=== PATIENT | male | born 1980 | race African-American/Black ===

== ENCOUNTER 2019-03-26 18:14 | Emergency (ER) | payer MEDICAID ==
[~2019-03-26] VITALS: Ht 167.6 cm; Wt 91.4 kg
[2019-03-26 19:02] VITALS: BP 142/96
== END 2019-03-26 19:51 | disposition home or self-care (01) ==
LOC: ED 19:45
DX: G89.11 Acute pain due to trauma (principal); M79.641 Pain in right hand
CPT/HCPCS: 99283

== ENCOUNTER 2019-11-30 11:18 | Emergency (ER) | payer MEDICAID, OTHER ==
[~2019-11-30] VITALS: Ht 170.2 cm; Wt 104.0 kg
[2019-11-30 11:31] VITALS: BP 146/102
--- NOTE | 2019-11-30 11:40 | NUR ---
VITALS AND EKG COMPLETED IN TRIAGE BY THIS TECH.
--- NOTE | 2019-11-30 12:18 | NUR ---
PT WITH C/O ALL OVER BODY ACHES AND PRODUCTIVE COUGH X 4 DAYS. PT SATING 96% RA
[2019-11-30 12:19] LABS: BASOPHILS # (AUTO) 0.03 x10^3/uL (0-0.1); BASOPHILS % (AUTO) 0 % (0-1); EOSINOPHILS # (AUTO) 0.13 x10^3/uL (0-0.4); EOSINOPHILS % (AUTO) 2 % (1-7); LYMPHOCYTES % (AUTO) 21 % (22-44); MD NO; MEAN CORPUSCULAR HEMOGLOBIN 25.6 pg (27.5-34.5); MEAN CORPUSCULAR HGB CONC 32.8 g/dL (33.2-36.2); MEAN CORPUSCULAR VOLUME 77.9 fL (81-97); MONOCYTES # (AUTO) 0.45 x10^3/uL (0.2-0.8); MONOCYTES % (AUTO) 7 % (2-9); NEUTROPHILS # (AUTO) 4.79 x10^3/uL (1.8-6.8); NEUTROPHILS % (AUTO) 70 % (42-75); PLATELET COUNT 253 x10^3/uL (130-400); RED BLOOD COUNT 5.56 x10^6/uL (4.38-5.82); RED CELL DISTRIBUTION WIDTH 16.8 % (9.4-14.8)
[2019-11-30 12:29] LABS: ALBUMIN 3.7 g/dL (3.4-5.0); ANION GAP 3 mmol/L (5-15); CALCIUM 9.3 mg/dL (8.5-10.1); CHLORIDE 106 mmol/L (98-107)
[2019-11-30 12:33] LABS: TROPONIN I < 0.015 ng/mL (0.000-0.045)
[2019-11-30 12:40] LABS: CREATININE 1.01 mg/dL (0.7-1.3)
== END 2019-11-30 13:11 | disposition home or self-care (01) ==
LOC: ED 12:22 → MERGE 12:22 → ED 13:11
DX: R07.89 Other chest pain (principal); R05 Cough; R51 Headache
CPT/HCPCS: 36415; 71045; 80048; 82040; 83615; 84484; 85025; 93005; 99285

== ENCOUNTER 2021-04-02 05:21 | Emergency (ER) | payer MEDICAID ==
[~2021-04-02] VITALS: Ht 167.6 cm; Wt 98.9 kg
--- NOTE | 2021-04-02 05:48 | NUR ---
PATIENT REPORTS HE HAS BEEN FEELING "COLD LIKE" SYMPTOMS FOR A COUPLE DAYS. REPORTS CHEST PAIN WITH COUGH ONLY, BODY ACHES, DENIES CHILLS. PATIENT IS NOT VACCINATED.
[2021-04-02] MEDS ORDERED: ACETAMINOPHEN 500 MG TABLET PO ONE (06:00)
[2021-04-02] MEDS ORDERED: ACETAMINOPHEN 500 MG TABLET ONE (06:03)
[2021-04-02 06:08] LABS: BASOPHILS % (AUTO) 0 % (0-1); EOSINOPHILS % (AUTO) 3 % (1-7); LYMPHOCYTES % (AUTO) 15 % (22-44); MEAN CORPUSCULAR HEMOGLOBIN 25.5 pg (27.5-34.5); MEAN CORPUSCULAR HGB CONC 33.2 g/dL (33.2-36.2); MEAN PLATELET VOLUME 7.4 fL (7.4-10.4); MONOCYTES % (AUTO) 14 % (2-9); NEUTROPHILS % (AUTO) 68 % (42-75); PLATELET COUNT 287 x10^3/uL (130-400); RED BLOOD COUNT 5.82 x10^6/uL (4.38-5.82); RED CELL DISTRIBUTION WIDTH 19.4 % (9.4-14.8)
[2021-04-02 06:22] LABS: ALBUMIN 3.4 g/dL (3.4-5.0); ANION GAP 5 mmol/L (5-15); CALCIUM 9.1 mg/dL (8.5-10.1); CHLORIDE 106 mmol/L (98-107)
[2021-04-02 06:23] LABS: CREATININE 1.06 mg/dL (0.7-1.3)
--- NOTE | 2021-04-02 07:00 | NUR ---
TOOK REPORT FROM Shani Melendez RN, ASSUME CARE AT THIS TIME.
[2021-04-02 07:07] VITALS: BP 126/87
== END 2021-04-02 07:15 | disposition home or self-care (01) ==
LOC: ED 05:48
DX: B34.9 Viral infection, unspecified (principal); Z20.822 Contact with and (suspected) exposure to COVID-19; I10 Essential (primary) hypertension; R07.89 Other chest pain; Z87.891 Personal history of nicotine dependence
CPT/HCPCS: 36415; 71045; 80048; 82040; 85025; 93005; 99285; U0003; U0005